=== PATIENT | male | born 1990 | race Caucasian/White ===

== ENCOUNTER → 2017-02-25 | Outpatient (REF) | payer OTHER | LOC: M SFHCADAM 09:37 | PROVIDERS: ATTEND Physician Assistant Medical | DX: J02.9 Acute pharyngitis, unspecified (principal) ==

== ENCOUNTER → 2020-11-01 | Outpatient (REF) | payer OTHER, BC | LOC: M SMT 13:29 | PROVIDERS: ATTEND Urology | DX: Z30.2 Encounter for sterilization (principal) ==

== ENCOUNTER 2020-12-15 14:54 | Emergency (ER) | payer BC, OTHER ==
[~2020-12-15] VITALS: Ht 172.7 cm; Wt 75.0 kg
[2020-12-15 17:00] VITALS: BP 144/102
== END 2020-12-15 17:05 | disposition home or self-care (01) ==
LOC: M ED 14:54
DX: M66.872 Spontaneous rupture of other tendons, left ankle and foot (principal); X58.XXXA Exposure to other specified factors, initial encounter; Y92.39 Other specified sports and athletic area as the place of occurrence of the external cause; Y93.02 Activity, running; Y99.9 Unspecified external cause status

== ENCOUNTER → 2020-12-27 | Outpatient (REF) | payer OTHER, BC ==
[2020-12-27 10:39] LABS: SEMEN APPEARANCE OPAQUE (OPAQUE); SEMEN VISCOSITY VISCOUS (LIQUID); WBC CONCENTRATION <=1 M/ml (<=1 M/ml)
== END ==
LOC: M SMT 10:13
PROVIDERS: ATTEND Urology
DX: Z30.2 Encounter for sterilization (principal)

== ENCOUNTER → 2022-11-16 | Outpatient (REF) | payer OTHER ==
[2022-11-16 15:05] LABS: BASO % 0.4 % (0.0-1.0); EOS # 0.2 10^3/uL (0.0-0.5); EOS % 3.4 % (0.0-3.0); HEMATOCRIT 45.9 % (42.0-52.0); HEMOGLOBIN 14.6 g/dl (13.5-17.5); LYMPH # 1.9 10^3/uL (1.5-5.0); LYMPH % 37.7 % (24.0-44.0); MEAN CORPUSCULAR HEMOGLOBIN 31.8 pg (27.0-33.0); MEAN CORPUSCULAR HGB CONC 31.8 g/dl (32.0-36.5); MONO # 0.5 10^3/uL (0.0-0.8); MONO % 9.5 % (2.0-8.0); NEUTROPHILS # 2.4 10^3/uL (1.5-8.5); PLATELET COUNT, AUTOMATED 274 10^3/uL (150-450); RED BLOOD COUNT 4.59 10^6/uL (4.30-6.10); WHITE BLOOD COUNT 5.1 10^3/uL (4.0-10.0)
[2022-11-16 15:35] LABS: ALBUMIN 4.1 G/DL (3.2-5.2); ALKALINE PHOSPHATASE 49 U/L (46-116); ALT/SGPT 28 U/L (7.0-40); AST/SGOT 30 U/L (<34); BILIRUBIN,TOTAL 0.8 MG/DL (0.3-1.2); BLOOD UREA NITROGEN 14 MG/DL (9-23); CALCIUM LEVEL 9.4 MG/DL (8.5-10.1); CARBON DIOXIDE LEVEL 28 MMOL/L (20-31); CHLORIDE LEVEL 104 MMOL/L (98-107); CHOLESTEROL LEVEL 177 MG/DL (<200); CHOLESTEROL RISK RATIO 2.43 (<5); CREATININE FOR GFR 0.96 MG/DL (0.70-1.30); GLOMERULAR FILTRATION RATE > 60.0 (>60); GLUCOSE, FASTING 84 MG/DL (60-100); HDL CHOLESTEROL 72.8 MG/DL (>40); LDL CHOLESTEROL 80.6 MG/DL (<100); NON-HDL-C 104.2 MG/DL; POTASSIUM SERUM 4.4 MMOL/L (3.5-5.1); SODIUM LEVEL 140 MMOL/L (136-145); THYROID STIMULATING HORMONE 1.348 uIU/ML (0.55-4.78); TOTAL 25(OH) VITAMIN D 26.3 NG/ML (20.0-100.0); TOTAL PROTEIN 6.6 G/DL (5.7-8.2); TRIGLYCERIDES LEVEL 118 MG/DL (<150)
== END ==
LOC: M SFHCADAM 08:11
PROVIDERS: ATTEND Physician Assistant Medical
DX: Z00.00 Encounter for general adult medical examination without abnormal findings (principal); Z13.220 Encounter for screening for lipoid disorders; Z83.3 Family history of diabetes mellitus; Z13.0 Encounter for screening for diseases of the blood and blood-forming organs and certain disorders involving the immune mechanism

== ENCOUNTER 2023-12-24 13:44 | Emergency (ER) | payer OTHER, BC ==
[~2023-12-24] VITALS: Ht 175.3 cm; Wt 80.4 kg
[2023-12-24 18:14] VITALS: BP 152/96; TEMP 97.2; O2SAT 99
== END 2023-12-24 18:18 | disposition home or self-care (01) ==
LOC: M ED 13:44
DX: S00.83XA Contusion of other part of head, initial encounter (principal); M25.461 Effusion, right knee; Y04.8XXA Assault by other bodily force, initial encounter; Y92.9 Unspecified place or not applicable; Y93.9 Activity, unspecified; Y99.9 Unspecified external cause status

== ENCOUNTER 2024-11-23 04:20 | Emergency (ER) | payer BC, OTHER ==
[~2024-11-23] VITALS: Ht 175.3 cm; Wt 77.3 kg
[2024-11-23 04:31] VITALS: TEMP 96.7
[2024-11-23 05:15] VITALS: BP 128/87; O2SAT 98
== END 2024-11-23 05:36 | disposition left against medical advice (07) ==
LOC: M ED 04:20
DX: Z53.21 Procedure and treatment not carried out due to patient leaving prior to being seen by health care provider (principal)

== ENCOUNTER → 2025-05-22 | Outpatient (REF) | payer BC ==
[2025-05-22 15:09] LABS: BASO # 0.0 10^3/uL (0.0-0.2); BASO % 0.8 % (0.0-1.0); EOS # 0.2 10^3/uL (0.0-0.5); EOS % 3.3 % (0.0-3.0); LYMPH # 2.0 10^3/uL (1.5-5.0); LYMPH % 38.6 % (24.0-44.0); MONO # 0.5 10^3/uL (0.0-0.8); MONO % 9.8 % (2.0-8.0); NEUTROPHILS # 2.5 10^3/uL (1.5-8.5); NEUTROPHILS % 47.3 % (36.0-66.0); PLATELET COUNT, AUTOMATED 296 10^3/uL (150-450)
[2025-05-22 15:15] LABS: FREE T4 1.39 NG/DL (0.89-1.76)
[2025-05-22 15:17] LABS: TOTAL 25(OH) VITAMIN D 38.0 NG/ML (20.0-100.0)
[2025-05-22 15:22] LABS: ALT/SGPT 37 U/L (7.0-40); AST/SGOT 29 U/L (<34); CALCIUM LEVEL 9.4 MG/DL (8.5-10.1); CARBON DIOXIDE LEVEL 29 MMOL/L (20-31); CHLORIDE LEVEL 104 MMOL/L (98-107); CHOLESTEROL LEVEL 197 MG/DL (<200); CHOLESTEROL RISK RATIO 2.58 (<5); CREATININE FOR GFR 0.94 MG/DL (0.70-1.30); GLOMERULAR FILTRATION RATE > 90.0 (>60); LDL CHOLESTEROL 103.6 MG/DL (<100); NON-HDL-C 120.8 MG/DL; POTASSIUM SERUM 4.8 MMOL/L (3.5-5.1); SODIUM LEVEL 139 MMOL/L (136-145); TRIGLYCERIDES LEVEL 86 MG/DL (<150)
== END ==
LOC: M SFHCADAM 09:54
PROVIDERS: ATTEND Physician Assistant Medical
DX: Z00.00 Encounter for general adult medical examination without abnormal findings (principal); E55.9 Vitamin D deficiency, unspecified; Z13.220 Encounter for screening for lipoid disorders; Z13.0 Encounter for screening for diseases of the blood and blood-forming organs and certain disorders involving the immune mechanism; Z83.3 Family history of diabetes mellitus

== ENCOUNTER → 2025-06-26 | Outpatient (REF) | payer BC ==
[2025-06-26 13:27] LABS: ALT/SGPT 35.0 U/L (7.0-40); AST/SGOT 25.0 U/L (<34)
== END ==
LOC: M SFHCADAM 08:20
PROVIDERS: ATTEND Physician Assistant Medical
DX: B35.3 Tinea pedis (principal)